=== PATIENT | female | born 1980 | race Caucasian/White ===

== ENCOUNTER 2018-05-03 11:55 | Day surgery (SDC) | payer MEDICAID ==
[2018-05-03] VITALS (7 sets, daily range): BP systolic 117–131; BP diastolic 62–87
[~2018-05-03] VITALS: Ht 160 cm; Wt 88.4 kg
[~2018-05-03 11:55] MED LIST: CHOL2000 PO; CYCL5TAB PO; LISI-604 PO; cefotetan 2gm/isosm dext IVPB 50 ML IV ONE; famotidine 20mg tablet PO ONE; ringers solution, lacted 1,000 ML IV SCH
[2018-05-03 13:03] LABS: BASOPHILS # (AUTO) 0.1 X10'3 (0-0.2); BASOPHILS % (AUTO) 0.8 % (0-1); EOSINOPHILS # (AUTO) 0.4 X10'3 (0-0.9); EOSINOPHILS % (AUTO) 3.6 % (0-6); HEMATOCRIT 43.4 % (35.0-45.0); HEMOGLOBIN 14.4 g/dl (12.0-16.0); LYMPHOCYTES # (AUTO) 2.9 X10'3 (1.1-4.8); LYMPHOCYTES % (AUTO) 27.3 % (21-51); MEAN CORPUSCULAR HEMOGLOBIN 27.9 PG (27.0-31.0); MEAN CORPUSCULAR HGB CONC 33.2 g/dL (33.0-36.5); MEAN CORPUSCULAR VOLUME 84.1 FL (78-98); MEAN PLATELET VOLUME 7.5 FL (7.4-10.4); MONOCYTES # (AUTO) 0.5 X10'3 (0-0.9); MONOCYTES % (AUTO) 4.9 % (2-12); NEUTROPHILS # (AUTO) 6.7 X10'3 (1.8-7.7); NEUTROPHILS % (AUTO) 63.4 % (42-75); PLATELET COUNT 272 X10'3 (140-440); RED BLOOD COUNT 5.16 X10'6 (4.20-5.60); RED CELL DISTRIBUTION WIDTH 14.1 % (11.5-14.5); WHITE BLOOD COUNT 10.5 X10'3 (4.5-11.0)
[2018-05-03] MEDS ORDERED: ringers solution, lacted 1,000 ML IV SCH (13:17)
[2018-05-03 13:18] LABS: ALANINE AMINOTRANSFERASE 21 U/L (12-78); ALKALINE PHOSPHATASE 74 IU/L (46-116); ANION GAP 14 (8-16); ASPARTATE AMINO TRANSFERASE 14 U/L (10-37); BILIRUBIN,TOTAL 0.3 MG/DL (0.1-1.0); BLOOD UREA NITROGEN 10 MG/DL (7-18); BUN/CREATININE RATIO 14.9 (6.6-38.0); CALCIUM 9.4 MG/DL (8.5-10.1); CHLORIDE 103 MMOL/L (99-107); CREATININE 0.67 MG/DL (0.40-0.90); GLUCOSE 97 MG/DL (70-104); POTASSIUM 3.8 MMOL/L (3.5-5.1); SODIUM 140 MMOL/L (135-145); TOTAL CARBON DIOXIDE 23.1 MMOL/L (24-32); TOTAL PROTEIN 8.2 G/DL (6.4-8.2); eGFR > 90 ML/MIN
[2018-05-03] MEDS ORDERED: ondansetron/PF 4mg/2ml inj IV PRN (13:20)
[2018-05-03] MEDS ORDERED: meperidine/PF 25mg/ml syringe IV PRN ×3 (13:20)
[2018-05-03] MEDS ORDERED: morphine 4 MG/ML inj SYRINge IV PRN ×2 (13:20)
[2018-05-03] MEDS ORDERED: proCHLORperazine 10 MG/2 ml inj IV PRN (13:20)
[2018-05-03 13:38] LABS: HCG SERUM QL NEGATIVE
[2018-05-03] MEDS ORDERED: epiNEPHrine 1 mg/ml inj ONE (14:02)
[2018-05-03] MEDS ORDERED: BUPIVAcaine/PF 2.5mg/ml (0.25%) 10ml vial ONE (14:02)
[2018-05-03] MEDS ORDERED: neostigmine methylsulfate 1 MG/ML 10ml vial ONE (14:12)
[2018-05-03] MEDS ORDERED: sevoflurane 250ml liquid IH ONE (14:12)
[2018-05-03] MEDS ORDERED: fentaNYL/PF 50MCG/1 ML 2ML syringe ONE (14:18)
[2018-05-03] MEDS ORDERED: propofol inj 20 ML IV ONE (14:19)
[2018-05-03] MEDS ORDERED: midazolam 2 mg/2 ml injection ONE (14:19)
[2018-05-03] MEDS ORDERED: LIDOcaine 2% (20mg/ml) 5ml vial ONE (14:19)
[2018-05-03] MEDS ORDERED: dexamethasone sod phosphate 4mg/ml inj. ONE (14:26)
[2018-05-03] MEDS ORDERED: rocuronium 10mg/ml inj IV ONE (14:28)
[2018-05-03] MEDS ORDERED: glycopyrrolate 0.2mg/ml inj ONE (14:51)
[2018-05-03] MEDS ORDERED: ketorolac trometh. 30mg/ml inj. ONE (14:51)
--- NOTE | 2018-05-03 15:00 | NUR ---
Received from OR via EDIN, accompanied by Anesthesiologist KATLYN and report given by Anesthesiolgist. PATIENT WITH 20G PIV IN LEFT HAND RUNNING LR AT 100. DENIES PAIN. 2 LAP SITES TO ABDOMEN. VSS. Addendum: 05/03/18 at 1523 by Valeriano López RN, RN Amended: Links added.
--- NOTE | 2018-05-03 15:50 | NUR ---
ALL DC CRITERIA HAS BEEN MET. IV TAKEN OUT WITHOUT COMPLICATIONS. ALL INSTRUCTIONS COVERED AND ALL QUESTIONS ANSWERED. DRESSINGS CDI. OUT VIA WHEELCHAIR TO PERSONAL VEHICLE WHERE PATIENT WAS SECURED IN AND DRIVEN HOME BY FAMILY. MOTHER DROVE PATIENT HOME. VSS. PAIN WELL CONTROLLED. Addendum: 05/03/18 at 1553 by Valeriano López RN, RN Amended: Links added.
== END 2018-05-03 15:50 | disposition home or self-care (01) ==
LOC: PAS 11:55
PROVIDERS: ATTEND Obstetrics & Gynecology Obstetrics
DX: Z30.2 Encounter for sterilization (principal); I10 Essential (primary) hypertension; Z79.899 Other long term (current) drug therapy; Z83.3 Family history of diabetes mellitus; Z82.49 Family history of ischemic heart disease and other diseases of the circulatory system
CPT/HCPCS: 36415; 58671; 71045; 80053; 84703; 85025; 86885; 86900; 86901; 93005; A4264; J0171; J1100; J1885; J2001; J2175; J2250; J2704; J2710; J3010; J3490; A7000; J7120

== ENCOUNTER 2019-04-27 19:10 | Emergency (ER) | payer MEDICAID ==
[~2019-04-27] VITALS: Ht 160 cm; Wt 78.5 kg
[~2019-04-27 19:10] MED LIST changes: -cefotetan 2gm/isosm dext IVPB 50 ML IV ONE; -famotidine 20mg tablet PO ONE; -ringers solution, lacted 1,000 ML IV SCH
[2019-04-27 19:13] VITALS: BP 147/96
== END 2019-04-27 20:55 | disposition left against medical advice (07) ==
LOC: ER 19:10
DX: M54.2 Cervicalgia (principal); Z53.21 Procedure and treatment not carried out due to patient leaving prior to being seen by health care provider

== ENCOUNTER 2019-04-28 13:55 | Emergency (ER) | payer MEDICAID ==
[~2019-04-28] VITALS: Ht 160 cm; Wt 78.3 kg
[2019-04-28 14:07] VITALS: BP 149/104
[2019-04-28] MEDS ORDERED: ketorolac trometh. 30mg/ml inj. IM ONE (14:30)
== END 2019-04-28 15:00 | disposition home or self-care (01) ==
LOC: ER 13:55
DX: M54.2 Cervicalgia (principal); I10 Essential (primary) hypertension; G89.29 Other chronic pain; F17.210 Nicotine dependence, cigarettes, uncomplicated; Z72.89 Other problems related to lifestyle; Z79.899 Other long term (current) drug therapy
CPT/HCPCS: 96372; 99283; J1885

== ENCOUNTER 2019-11-30 16:04 | Emergency (ER) | payer MEDICAID ==
[~2019-11-30] VITALS: Ht 162.6 cm; Wt 79.0 kg
[2019-11-30] MEDS ORDERED: ketorolac tromethamine 15mg/ml inj. IM ONE (17:45)
[2019-11-30] MEDS ORDERED: orphenadrine citrate 60mg/2ml inj. IM ONE (17:45)
[2019-11-30 18:48] VITALS: BP 148/102
[2019-11-30] MEDS ORDERED: TIZA2TAB7 PO (19:02)
== END 2019-11-30 19:24 | disposition home or self-care (01) ==
LOC: ER 16:05
DX: M54.5 Low back pain (principal); I10 Essential (primary) hypertension; G89.29 Other chronic pain; Z72.89 Other problems related to lifestyle; Z79.899 Other long term (current) drug therapy
CPT/HCPCS: 72070; 72100; 96372; 99284; J1885; J2360

== ENCOUNTER 2020-06-22 18:49 | Emergency (ER) | payer MEDICAID ==
[~2020-06-22] VITALS: Ht 162.6 cm; Wt 77.0 kg
[~2020-06-22 18:49] MED LIST changes: -LISI-604 PO; +LISI-790 PO; +TIZA-189 PO
[2020-06-22] MEDS ORDERED: normal saline 1000ML IV soln IVB ONE (19:40)
[2020-06-22] MEDS ORDERED: fentaNYL/PF 50MCG/1 ML 2ML syringe IV ONE (20:00)
[2020-06-22 20:45] LABS: BASOPHILS # (AUTO) 0.1 X10'3 (0-0.2); EOSINOPHILS # (AUTO) 0.1 X10'3 (0-0.9); EOSINOPHILS % (AUTO) 0.9 % (0-6); HEMATOCRIT 45.2 % (35.0-45.0); HEMOGLOBIN 15.3 g/dl (12.0-16.0); LYMPHOCYTES # (AUTO) 3.2 X10'3 (1.1-4.8); MEAN CORPUSCULAR HEMOGLOBIN 35.2 PG (27.0-31.0); MEAN CORPUSCULAR HGB CONC 33.9 g/dL (33.0-36.5); MEAN CORPUSCULAR VOLUME 103.8 FL (78-98); MEAN PLATELET VOLUME 6.7 FL (7.4-10.4); MONOCYTES # (AUTO) 0.6 X10'3 (0-0.9); MONOCYTES % (AUTO) 5.6 % (2-12); NEUTROPHILS % (AUTO) 63.5 % (42-75); PLATELET COUNT 308 X10'3 (140-440); RED BLOOD COUNT 4.35 X10'6 (4.20-5.60); RED CELL DISTRIBUTION WIDTH 14.3 % (11.5-14.5)
[2020-06-22 20:58] LABS: CLARITY,URINE SLIGHTLY CLOUDY (Clear); COLOR,URINE YELLOW (Yellow); GLUCOSE, URINE NEGATIVE (Neg); KETONES,URINE NEGATIVE (Neg); LEUKOCYTE ESTERASE ,URINE SMALL (Neg); NITRITES, URINE NEGATIVE (Neg); OCCULT BLOOD,URINE NEGATIVE (Neg); PH,URINE 5.5 (4.8-8.0); PROTEIN,URINE TRACE mg/dl (Neg)
[2020-06-22 20:59] LABS: URINE HCG NEGATIVE (NEG)
[2020-06-22 21:02] LABS: UA COLLECTION TYPE CLN CATCH MIDSTREAM
[2020-06-22 21:03] LABS: BACTERIA,URINE 2+ /HPF (Neg); RBC,URINE NONE SEEN /HPF (0-2); SQUAMOUS EPITHELIAL CELL,UR FEW /LPF (FEW); WBC,URINE 0-4 /HPF (0-4)
[2020-06-22 21:09] LABS: ALANINE AMINOTRANSFERASE 41 U/L (12-78); ALBUMIN 3.2 G/DL (3.4-5.0); ALBUMIN/GLOBULIN RATIO 0.7 (1.1-1.5); ALKALINE PHOSPHATASE 153 IU/L (46-116); ANION GAP 10 (8-16); ASPARTATE AMINO TRANSFERASE 107 U/L (10-37); BILIRUBIN,TOTAL 0.5 MG/DL (0.1-1.0); BLOOD UREA NITROGEN 4 MG/DL (7-18); BUN/CREATININE RATIO 2.7 (6.6-38.0); CALCIUM 9.2 MG/DL (8.5-10.1); CHLORIDE 95 MMOL/L (99-107); CREATININE 1.49 MG/DL (0.40-0.90); ETHANOL 0.242 GM/DL (0.0-0.010); GLUCOSE 134 MG/DL (70-104); SODIUM 139 MMOL/L (135-145); TOTAL CARBON DIOXIDE 34.2 MMOL/L (24-32); eGFR 39 ML/MIN
[2020-06-22 21:12] LABS: URINE AMPHETAMINE SCREEN NEGATIVE (Neg); URINE BARBITUATE SCREEN NEGATIVE (Neg); URINE BENZODIAZEPINES SCREEN NEGATIVE (Neg); URINE CANNABINOID SCREEN POSITIVE (Neg); URINE COCAINE SCREEN NEGATIVE (Neg); URINE METHADONE SCREEN NEGATIVE (Neg); URINE OPIATE SCREEN NEGATIVE (Neg); URINE PHENCYCLIDINE SCREEN NEGATIVE (Neg)
[2020-06-22 21:15] LABS: POTASSIUM 2.1 MMOL/L (3.5-5.1)
[2020-06-22] MEDS ORDERED: potassium Cl 10 mEq/100mL bag IV ONE (21:20)
[2020-06-22] MEDS ORDERED: POTASSIUM BICARB 20meq eff tab 20 MEQ TABLET.EFF PO ONE (21:20)
[2020-06-22 23:27] VITALS: BP 99/73
== END 2020-06-22 23:33 | disposition home or self-care (01) ==
LOC: ER 18:50
DX: G89.29 Other chronic pain (principal); E87.6 Hypokalemia; F10.129 Alcohol abuse with intoxication, unspecified; R10.32 Left lower quadrant pain; M54.2 Cervicalgia; R11.2 Nausea with vomiting, unspecified; M54.89 Other dorsalgia; I10 Essential (primary) hypertension; Z72.89 Other problems related to lifestyle; Z79.899 Other long term (current) drug therapy; Y90.0 Blood alcohol level of less than 20 mg/100 ml
CPT/HCPCS: 36415; 71045; 80053; 80305; 80320; 81001; 81025; 84145; 85025; 87077; 87088; 87186; 96361; 96365; 99285; J3480; J7030

== ENCOUNTER 2020-07-12 04:31 | Emergency (ER) | payer MEDICAID ==
[~2020-07-12] VITALS: Ht 170.2 cm; Wt 77.2 kg
[2020-07-12 04:33] VITALS: BP 148/98
== END 2020-07-12 06:27 | disposition left against medical advice (07) ==
LOC: ER 04:31
DX: R60.0 Localized edema (principal); R11.10 Vomiting, unspecified; F10.129 Alcohol abuse with intoxication, unspecified; I10 Essential (primary) hypertension; G89.29 Other chronic pain; Z72.89 Other problems related to lifestyle; Z79.899 Other long term (current) drug therapy; Y90.9 Presence of alcohol in blood, level not specified
CPT/HCPCS: 99283

== ENCOUNTER 2020-07-26 01:42 | Emergency (ER) | payer MEDICAID ==
[~2020-07-26] VITALS: Ht 162.6 cm; Wt 75.0 kg
[2020-07-26] MEDS ORDERED: LORazepam 2 mg/ml vial IV ONE (06:05)
[2020-07-26] MEDS ORDERED: normal saline 1000ml 1,000 ML IV ONE (06:05)
[2020-07-26 07:09] LABS: BASOPHILS % (AUTO) 0.5 % (0-1); EOSINOPHILS % (AUTO) 0.1 % (0-6); HEMATOCRIT 36.4 % (35.0-45.0); HEMOGLOBIN 12.5 g/dl (12.0-16.0); LYMPHOCYTES # (AUTO) 1.4 X10'3 (1.1-4.8); LYMPHOCYTES % (AUTO) 21.1 % (21-51); MEAN CORPUSCULAR HEMOGLOBIN 36.2 PG (27.0-31.0); MEAN CORPUSCULAR HGB CONC 34.2 g/dL (33.0-36.5); MEAN CORPUSCULAR VOLUME 105.7 FL (78-98); MEAN PLATELET VOLUME 7.4 FL (7.4-10.4); MONOCYTES # (AUTO) 0.3 X10'3 (0-0.9); MONOCYTES % (AUTO) 5.3 % (2-12); NEUTROPHILS # (AUTO) 4.7 X10'3 (1.8-7.7); PLATELET COUNT 75 X10'3 (140-440); RED BLOOD COUNT 3.44 X10'6 (4.20-5.60); WHITE BLOOD COUNT 6.5 X10'3 (4.5-11.0)
[2020-07-26 07:24] LABS: ALANINE AMINOTRANSFERASE 74 U/L (12-78); ALBUMIN 3.4 G/DL (3.4-5.0); ALBUMIN/GLOBULIN RATIO 0.9 (1.1-1.5); ALKALINE PHOSPHATASE 118 IU/L (46-116); ANION GAP 18 (8-16); ASPARTATE AMINO TRANSFERASE 187 U/L (10-37); BILIRUBIN,TOTAL 2.3 MG/DL (0.1-1.0); BLOOD UREA NITROGEN 11 MG/DL (7-18); BUN/CREATININE RATIO 19.3 (6.6-38.0); CALCIUM 8.5 MG/DL (8.5-10.1); CHLORIDE 100 MMOL/L (99-107); CREATININE 0.57 MG/DL (0.40-0.90); GLUCOSE 97 MG/DL (70-104); LIPASE 362 U/L (73-393); POTASSIUM 3.3 MMOL/L (3.5-5.1); SODIUM 140 MMOL/L (135-145); TOTAL PROTEIN 7.2 G/DL (6.4-8.2); eGFR > 90 ML/MIN
[2020-07-26] MEDS ORDERED: FAMO40TA73 PO (07:46)
[2020-07-26 08:03] VITALS: BP 142/85
== END 2020-07-26 08:04 | disposition home or self-care (01) ==
LOC: ER 01:42
DX: R11.2 Nausea with vomiting, unspecified (principal); K29.70 Gastritis, unspecified, without bleeding; D69.6 Thrombocytopenia, unspecified; I10 Essential (primary) hypertension; G89.29 Other chronic pain; F17.200 Nicotine dependence, unspecified, uncomplicated; Z72.89 Other problems related to lifestyle; Z79.899 Other long term (current) drug therapy; Z98.51 Tubal ligation status
CPT/HCPCS: 80053; 83690; 85025; 85610; 96374; 99283; J2060; J7030

== ENCOUNTER 2020-07-30 02:14 | Emergency (ER) | payer MEDICAID ==
[~2020-07-30] VITALS: Ht 162.6 cm; Wt 68.2 kg
[~2020-07-30 02:14] MED LIST changes: +FAMO40TA73 PO
[2020-07-30 02:20] VITALS: BP 150/96
[2020-07-30] MEDS ORDERED: PRED20TA PO (02:22)
[2020-07-30] MEDS ORDERED: dexamethasone 4mg tablet PO ONE (02:25)
== END 2020-07-30 02:44 | disposition home or self-care (01) ==
LOC: ER 02:15
DX: L25.3 Unspecified contact dermatitis due to other chemical products (principal); I10 Essential (primary) hypertension; G89.29 Other chronic pain; Z98.51 Tubal ligation status; Z72.89 Other problems related to lifestyle; Z60.2 Problems related to living alone; Z79.899 Other long term (current) drug therapy
CPT/HCPCS: 99283

== ENCOUNTER → 2020-08-03 | Emergency (ER) | payer MEDICAID ==
[~2020-08-03] VITALS: Ht 162.6 cm; Wt 69.0 kg
[~2020-08-03] MED LIST changes: +PRED20TA PO; +diphenhydrAMINE 25mg capsule PO ONE
[2020-08-03 03:47] VITALS: BP 123/79
== END | disposition home or self-care (01) ==
LOC: ER 03:46
DX: L53.8 Other specified erythematous conditions (principal); L29.9 Pruritus, unspecified; R94.5 Abnormal results of liver function studies; I10 Essential (primary) hypertension; F17.200 Nicotine dependence, unspecified, uncomplicated; G89.29 Other chronic pain; Z98.51 Tubal ligation status; Z72.89 Other problems related to lifestyle; Z60.2 Problems related to living alone; Z79.899 Other long term (current) drug therapy
CPT/HCPCS: 99282; Q0163

== ENCOUNTER → 2020-12-30 | Emergency (ER) | payer MEDICAID ==
[~2020-12-30] VITALS: Ht 162.6 cm; Wt 56.4 kg
[~2020-12-30] MED LIST changes: -LISI-790 PO; +LISI5TAB22 PO; -PRED20TA PO; -diphenhydrAMINE 25mg capsule PO ONE
[2020-12-30 11:30] VITALS: BP 157/108
[2020-12-30 12:08] LABS: ALANINE AMINOTRANSFERASE 26 U/L (12-78); ALBUMIN 4.2 G/DL (3.4-5.0); ALKALINE PHOSPHATASE 90 IU/L (46-116); ANION GAP 17 (8-16); ASPARTATE AMINO TRANSFERASE 25 U/L (10-37); BILIRUBIN,TOTAL 0.5 MG/DL (0.1-1.0); BLOOD UREA NITROGEN 10 MG/DL (7-18); BUN/CREATININE RATIO 16.9 (6.6-38.0); CHLORIDE 107 MMOL/L (99-107); CREATININE 0.59 MG/DL (0.40-0.90); ETHANOL 0.297 GM/DL (0.0-0.010); GLUCOSE 104 MG/DL (70-104); SODIUM 151 MMOL/L (135-145); TOTAL CARBON DIOXIDE 27.3 MMOL/L (24-32); TOTAL PROTEIN 8.6 G/DL (6.4-8.2); eGFR > 90 ML/MIN
[2020-12-30 12:12] LABS: POTASSIUM 2.8 MMOL/L (3.5-5.1)
[2020-12-30 12:18] LABS: BASOPHILS # (AUTO) 0.1 X10'3 (0-0.2); BASOPHILS % (AUTO) 1.3 % (0-1); EOSINOPHILS # (AUTO) 0.1 X10'3 (0-0.9); EOSINOPHILS % (AUTO) 1.1 % (0-6); HEMATOCRIT 44.4 % (35.0-45.0); HEMOGLOBIN 14.6 g/dl (12.0-16.0); LYMPHOCYTES # (AUTO) 2.6 X10'3 (1.1-4.8); LYMPHOCYTES % (AUTO) 36.6 % (21-51); MEAN CORPUSCULAR HEMOGLOBIN 26.6 PG (27.0-31.0); MEAN CORPUSCULAR HGB CONC 32.9 g/dL (33.0-36.5); MEAN CORPUSCULAR VOLUME 80.7 FL (78-98); MEAN PLATELET VOLUME 7.1 FL (7.4-10.4); MONOCYTES # (AUTO) 0.3 X10'3 (0-0.9); MONOCYTES % (AUTO) 4.5 % (2-12); NEUTROPHILS # (AUTO) 4.1 X10'3 (1.8-7.7); NEUTROPHILS % (AUTO) 56.5 % (42-75); PLATELET COUNT 306 X10'3 (140-440); RED BLOOD COUNT 5.49 X10'6 (4.20-5.60); RED CELL DISTRIBUTION WIDTH 14.6 % (11.5-14.5); WHITE BLOOD COUNT 7.2 X10'3 (4.5-11.0)
== END | disposition home or self-care (01) ==
LOC: ER 10:37
DX: F10.929 Alcohol use, unspecified with intoxication, unspecified (principal); E87.6 Hypokalemia; I10 Essential (primary) hypertension; Z88.8 Allergy status to other drugs, medicaments and biological substances
CPT/HCPCS: 36415; 80053; 80320; 82140; 85025; 99283

== ENCOUNTER 2021-01-12 16:32 | Emergency (ER) | payer MEDICAID ==
[~2021-01-12] VITALS: Ht 162.6 cm; Wt 60.0 kg
[2021-01-12 17:17] LABS: BASOPHILS % (AUTO) 0.4 % (0-1); EOSINOPHILS # (AUTO) 0.1 X10'3 (0-0.9); HEMATOCRIT 37.6 % (35.0-45.0); HEMOGLOBIN 12.4 g/dl (12.0-16.0); LYMPHOCYTES # (AUTO) 2.1 X10'3 (1.1-4.8); MEAN CORPUSCULAR HEMOGLOBIN 26.7 PG (27.0-31.0); MEAN CORPUSCULAR HGB CONC 32.9 g/dL (33.0-36.5); MEAN CORPUSCULAR VOLUME 81.3 FL (78-98); MONOCYTES # (AUTO) 0.4 X10'3 (0-0.9); MONOCYTES % (AUTO) 6.5 % (2-12); NEUTROPHILS # (AUTO) 3.8 X10'3 (1.8-7.7); NEUTROPHILS % (AUTO) 59.1 % (42-75); PLATELET COUNT 96 X10'3 (140-440); RED BLOOD COUNT 4.63 X10'6 (4.20-5.60); WHITE BLOOD COUNT 6.4 X10'3 (4.5-11.0)
[2021-01-12 17:31] LABS: ALANINE AMINOTRANSFERASE 88 U/L (12-78); ALBUMIN 3.5 G/DL (3.4-5.0); ALBUMIN/GLOBULIN RATIO 0.9 (1.1-1.5); ALKALINE PHOSPHATASE 99 IU/L (46-116); ANION GAP 14 (8-16); ASPARTATE AMINO TRANSFERASE 98 U/L (10-37); BILIRUBIN,TOTAL 0.9 MG/DL (0.1-1.0); BLOOD UREA NITROGEN 6 MG/DL (7-18); BUN/CREATININE RATIO 11.3 (6.6-38.0); CALCIUM 8.5 MG/DL (8.5-10.1); CHLORIDE 106 MMOL/L (99-107); CREATININE 0.53 MG/DL (0.40-0.90); ETHANOL 0.234 GM/DL (0.0-0.010); GLUCOSE 103 MG/DL (70-104); MAGNESIUM 2.2 MG/DL (1.5-2.4); POTASSIUM 3.7 MMOL/L (3.5-5.1); SODIUM 144 MMOL/L (135-145); TOTAL CARBON DIOXIDE 24.1 MMOL/L (24-32); TOTAL PROTEIN 7.3 G/DL (6.4-8.2); eGFR > 90 ML/MIN
[2021-01-12] MEDS ORDERED: THIA100T66 PO (17:46)
[2021-01-12] MEDS ORDERED: FAMO40TA58 PO (17:46)
[2021-01-12] MEDS ORDERED: FOLI0.8T3 PO (17:46)
[2021-01-12] MEDS ORDERED: POTA10TA PO (17:46)
[2021-01-12] MEDS ORDERED: GABA300C PO (17:46)
--- NOTE | 2021-01-12 17:58 | NUR ---
Pt given and understands d/c instructions. Pt refuses to sign the discharge paper. Given a bus pass. Security called to escort pt out of the ER.
[2021-01-12 17:59] VITALS: BP 128/66
== END 2021-01-12 18:01 | disposition home or self-care (01) ==
LOC: ER 16:33
DX: F10.129 Alcohol abuse with intoxication, unspecified (principal); R53.1 Weakness; I10 Essential (primary) hypertension; G89.29 Other chronic pain; Z98.51 Tubal ligation status; Z72.89 Other problems related to lifestyle; Z60.2 Problems related to living alone; Z88.8 Allergy status to other drugs, medicaments and biological substances; Z79.899 Other long term (current) drug therapy; Y90.0 Blood alcohol level of less than 20 mg/100 ml
CPT/HCPCS: 36415; 80053; 80320; 82140; 83735; 85025; 99283

== ENCOUNTER 2021-01-12 19:12 | Emergency (ER) | payer MEDICAID ==
[~2021-01-12] VITALS: Ht 162.6 cm; Wt 54.5 kg
[~2021-01-12 19:12] MED LIST changes: +FAMO40TA58 PO; +FOLI0.8T3 PO; +GABA300C PO; +POTA10TA PO; +THIA100T66 PO
[2021-01-12 19:23] VITALS: BP 137/93
== END 2021-01-12 19:30 | disposition home or self-care (01) ==
LOC: ER 19:12
DX: F10.129 Alcohol abuse with intoxication, unspecified (principal); R53.1 Weakness; I10 Essential (primary) hypertension; G89.29 Other chronic pain; Z98.51 Tubal ligation status; Z72.89 Other problems related to lifestyle; Z60.2 Problems related to living alone; Z88.8 Allergy status to other drugs, medicaments and biological substances; Z79.899 Other long term (current) drug therapy; Y90.9 Presence of alcohol in blood, level not specified
CPT/HCPCS: 99283

== ENCOUNTER 2021-09-14 02:51 | Emergency (ER) | payer MEDICAID ==
[~2021-09-14] VITALS: Ht 160 cm; Wt 68.0 kg
[~2021-09-14 02:51] MED LIST changes: -CHOL2000 PO; -CYCL5TAB PO; -FAMO40TA73 PO; -LISI5TAB22 PO; -TIZA-189 PO
[2021-09-14] MEDS ORDERED: DICL100G30 TOP (02:55)
[2021-09-14] MEDS ORDERED: BACL20TA PO (02:55)
[2021-09-14] MEDS ORDERED: NAPR-996 PO (02:55)
--- NOTE | 2021-09-14 03:15 | NUR ---
Pt BIB law enforcement after they received multiple calls requested that they give her medication. Per law enforcement pt had a tray of medicine that she has not been taking and she was worried that someone would take them. Law enforcement reported that there was 2 empty bottles of [place] in the hotel room and that the pt was having auditory and visual hallucinations about a [employer]. Pt admits to drinking 8 shots of whiskey and that [place] is her landlord. Pt has not mentioned [employer] since arrival. Pt was cooperative and calm while taking vital signs and insertion of IV.
[2021-09-14 03:39] LABS: EOSINOPHILS % (AUTO) 0.5 % (0-6); MONOCYTES # (AUTO) 0.4 X10'3 (0-0.9)
[2021-09-14 03:40] LABS: BASOPHILS # (AUTO) 0.1 X10'3 (0-0.2); BASOPHILS % (AUTO) 1.1 % (0-1); HEMATOCRIT 47.6 % (35.0-45.0); LYMPHOCYTES # (AUTO) 3.2 X10'3 (1.1-4.8); LYMPHOCYTES % (AUTO) 38.7 % (21-51); MEAN CORPUSCULAR HEMOGLOBIN 28.8 PG (27.0-31.0); MEAN CORPUSCULAR HGB CONC 33.7 g/dL (33.0-36.5); MEAN CORPUSCULAR VOLUME 85.4 FL (78-98); MEAN PLATELET VOLUME 7.4 FL (7.4-10.4); MONOCYTES % (AUTO) 5.3 % (2-12); NEUTROPHILS # (AUTO) 4.5 X10'3 (1.8-7.7); NEUTROPHILS % (AUTO) 54.4 % (42-75); PLATELET COUNT 222 X10'3 (140-440); RED BLOOD COUNT 5.57 X10'6 (4.20-5.60); RED CELL DISTRIBUTION WIDTH 13.9 % (11.5-14.5); WHITE BLOOD COUNT 8.4 X10'3 (4.5-11.0)
[2021-09-14 03:51] LABS: ALANINE AMINOTRANSFERASE 32 U/L (12-78); ALBUMIN 4.2 G/DL (3.4-5.0); ALKALINE PHOSPHATASE 93 IU/L (46-116); ANION GAP 21 (8-16); ASPARTATE AMINO TRANSFERASE 25 U/L (10-37); BILIRUBIN,TOTAL 0.5 MG/DL (0.1-1.0); BLOOD UREA NITROGEN 15 MG/DL (7-18); BUN/CREATININE RATIO 22.7 (6.6-38.0); CALCIUM 8.2 MG/DL (8.5-10.1); CHLORIDE 104 MMOL/L (99-107); CREATININE 0.66 MG/DL (0.40-0.90); GLUCOSE 157 MG/DL (70-104); SODIUM 146 MMOL/L (135-145); TOTAL CARBON DIOXIDE 20.9 MMOL/L (24-32); TOTAL PROTEIN 8.6 G/DL (6.4-8.2); eGFR > 90 ML/MIN
[2021-09-14 04:02] LABS: ETHANOL 0.344 GM/DL (0.0-0.010)
[2021-09-14 04:04] LABS: ACETAMINOPHEN < 2.0 UG/ML (10-30)
[2021-09-14] MEDS ORDERED: nicotine 14mg patch - 24hr TD ONE (04:15)
[2021-09-14 04:18] LABS: URINE HCG NEGATIVE (NEG)
[2021-09-14 04:31] LABS: URINE AMPHETAMINE SCREEN NEGATIVE (Neg); URINE BARBITUATE SCREEN NEGATIVE (Neg); URINE BENZODIAZEPINES SCREEN NEGATIVE (Neg); URINE CANNABINOID SCREEN NEGATIVE (Neg); URINE COCAINE SCREEN NEGATIVE (Neg); URINE METHADONE SCREEN NEGATIVE (Neg); URINE OPIATE SCREEN NEGATIVE (Neg); URINE PHENCYCLIDINE SCREEN NEGATIVE (Neg)
[2021-09-14 04:32] LABS: CLARITY,URINE SLIGHTLY CLOUDY (Clear); COLOR,URINE YELLOW (Yellow); GLUCOSE, URINE NEGATIVE (Neg); KETONES,URINE TRACE mg/dl (Neg); LEUKOCYTE ESTERASE ,URINE NEGATIVE (Neg); NITRITES, URINE NEGATIVE (Neg); OCCULT BLOOD,URINE TRACE-INTACT (Neg); PH,URINE 5.5 (4.8-8.0); PROTEIN,URINE 30 mg/dl (Neg); UROBILINOGEN,URINE 0.2 E.U/dL (0.2-1.0)
[2021-09-14 04:38] LABS: BACTERIA,URINE 2+ /HPF (Neg); RBC,URINE 0-2 /HPF (0-2); SQUAMOUS EPITHELIAL CELL,UR MANY /LPF (FEW); UA COLLECTION TYPE CLN CATCH MIDSTREAM; WBC,URINE NONE SEEN /HPF (0-4)
--- NOTE | 2021-09-14 05:27 | NUR ---
Pt has been cooperative and calm since law enforcement uncuffed and left the pts bedside. Pt requested a nicotine patch and laid down and went to sleep after patch was placed on pt.
--- NOTE | 2021-09-14 07:00 | NUR ---
Packet faxed to [facility]
[2021-09-14] MEDS ORDERED: ondansetron/PF 4mg/2ml inj IV ONE ×2 (09:20→12:10)
[2021-09-14] MEDS ORDERED: famotidine 20mg tablet PO ONE (09:20)
[2021-09-14] MEDS ORDERED: potassium Cl 20 mEq SR tablet PO STA (12:37)
[2021-09-14] MEDS ORDERED: gabapentin 300mg capsule PO ONE (16:10)
--- NOTE | 2021-09-14 16:21 | NUR ---
Patient was evaluated by [facility] at which she will be able to be safety planned, but not till tomorrow when she can be seen for an appointment to help with substance abuse rehab. [facility] social sciences lecturer will come tomorrow and pick her up at 0930, but just prior to this patient will be released from the 5150. Patient will maintain 5150 hold until tomorrow morning.
[2021-09-14] MEDS ORDERED: POTASSIUM BICARB 20meq eff tab 20 MEQ TABLET.EFF PO STA (16:27)
[2021-09-14] MEDS ORDERED: ondansetron 4mg rapidly disintigrating tab PO ONE (18:55)
--- NOTE | 2021-09-14 19:00 | NUR ---
PT brought to ER overflow, pt went to the restroom without issue.
--- NOTE | 2021-09-14 19:10 | NUR ---
Pt reports feeling nauseated, physician consulted, 4mg zofran ODT given with good effect. pt was able to eat an hour after dose
--- NOTE | 2021-09-14 20:00 | NUR ---
PT took HS medications without issue
[2021-09-14] MEDS: gabapentin 300mg capsule PO SCH (21:35)
[2021-09-14] MEDS: naproxen 500mg tablet PO SCH (21:36)
--- NOTE | 2021-09-15 02:00 | NUR ---
PT asleep on R side, RR16
--- NOTE | 2021-09-15 04:41 | NUR ---
PT is asleep on back RR 14
[2021-09-15 05:47] VITALS: BP 147/93
--- NOTE | 2021-09-15 07:00 | NUR ---
UP TO USE RESTROOM WITH HER WALKER ,STEADY GAIT ,WILL CONT TO MONITOR.
[2021-09-15] MEDS ORDERED: thiamine 100mg tablet PO SCH (08:00)
[2021-09-15] MEDS: naproxen 500mg tablet PO SCH (08:00)
[2021-09-15] MEDS ORDERED: famotidine 20mg tablet PO SCH (08:00)
[2021-09-15] MEDS ORDERED: folic acid 1mg tablet PO SCH (08:00)
[2021-09-15] MEDS: gabapentin 300mg capsule PO SCH (08:12)
--- NOTE | 2021-09-15 08:26 | NUR ---
MEDS GIVEN TO THE PT ,REFUSED TO TAKE NAPROXEN TAB, PER PT IT MAKE HER STOMACH SICK .DID THE GENERAL HEAD TO TOE ASSESMENT .
== END 2021-09-15 09:35 | disposition home or self-care (01) ==
LOC: ER 02:51
DX: F29 Unspecified psychosis not due to a substance or known physiological condition (principal); F10.920 Alcohol use, unspecified with intoxication, uncomplicated; R44.1 Visual hallucinations; R44.0 Auditory hallucinations; I10 Essential (primary) hypertension; G89.29 Other chronic pain; F17.210 Nicotine dependence, cigarettes, uncomplicated; Z79.899 Other long term (current) drug therapy; Z88.8 Allergy status to other drugs, medicaments and biological substances
CPT/HCPCS: 36415; 80053; 80305; 80320; 80329; 81001; 81025; 84443; 85025; 96374; 99285; J2405

== ENCOUNTER 2023-08-08 14:56 | Inpatient (IN) | payer MEDICAID ==
[~2023-08-08] VITALS: Ht 162.6 cm; Wt 65.9 kg
[~2023-08-08 14:56] MED LIST changes: +NAPR-996 PO; -POTA10TA PO
[2023-08-08] MEDS: HYDROmorphone 1 mg/ml syringe IV ONE ×2 (15:23→16:29)
[2023-08-08] MEDS: LORazepam 2 mg/ml vial IV ONE (16:02)
[2023-08-08] MEDS ORDERED: ondansetron/PF 4mg/2ml inj IV PRN (16:05)
[2023-08-08] MEDS ORDERED: magnesium Cl slow-release 64mg tablet PO PRN (16:05)
[2023-08-08] MEDS ORDERED: mag hydrox/Alum hydrox/simeth 30ml oral suspension PO PRN (16:05)
[2023-08-08] MEDS ORDERED: magnesium hydroxide 30ml (MOM) UD suspension PO PRN (16:05)
[2023-08-08] MEDS ORDERED: acetaminophen 325mg tablet PO PRN (16:05)
[2023-08-08] MEDS ORDERED: morphine 2 MG/ML inj. syringe IV PRN (16:05)
[2023-08-08] MEDS ORDERED: magnesium 2GM in 50ml NS 50 ML IV PRN (16:05)
[2023-08-08] MEDS ORDERED: magnesium 4gm in 100ml NS 100 ML IV PRN (16:05)
[2023-08-08 17:06] LABS: APTT 24 SECONDS (22-32); INR 1.1 INR; PROTHROMBIN TIME 11.2 SECONDS (9.0-12.0)
[2023-08-08 17:07] LABS: BASOPHILS # (AUTO) 0.1 X10'3 (0-0.2); BASOPHILS % (AUTO) 1.4 % (0-1); EOSINOPHILS # (AUTO) 0.1 X10'3 (0-0.9); EOSINOPHILS % (AUTO) 1.9 % (0-6); HEMATOCRIT 34.9 % (35.0-45.0); HEMOGLOBIN 11.3 g/dl (12.0-16.0); LYMPHOCYTES # (AUTO) 2.1 X10'3 (1.1-4.8); MEAN CORPUSCULAR HEMOGLOBIN 28.7 PG (27.0-31.0); MEAN CORPUSCULAR HGB CONC 32.3 g/dL (33.0-36.5); MEAN CORPUSCULAR VOLUME 88.8 FL (78-98); MEAN PLATELET VOLUME 7.2 FL (7.4-10.4); MONOCYTES # (AUTO) 0.4 X10'3 (0-0.9); NEUTROPHILS # (AUTO) 2.7 X10'3 (1.8-7.7); NEUTROPHILS % (AUTO) 50.7 % (42-75); PLATELET COUNT 212 X10'3 (140-440); RED BLOOD COUNT 3.93 X10'6 (4.20-5.60); RED CELL DISTRIBUTION WIDTH 20.2 % (11.5-14.5); WHITE BLOOD COUNT 5.3 X10'3 (4.5-11.0)
[2023-08-08 17:12] LABS: ALANINE AMINOTRANSFERASE 26 U/L (12-78); ALBUMIN 3.4 G/DL (3.4-5.0); ALBUMIN/GLOBULIN RATIO 0.9 (1.1-1.5); ALKALINE PHOSPHATASE 60 IU/L (46-116); ANION GAP 15 (8-16); ASPARTATE AMINO TRANSFERASE 24 U/L (10-37); BILIRUBIN,TOTAL 0.4 MG/DL (0.1-1.0); BLOOD UREA NITROGEN 5 MG/DL (7-18); BUN/CREATININE RATIO 8.9 (10.0-20.0); CHLORIDE 108 MMOL/L (99-107); CREATININE 0.56 MG/DL (0.40-0.90); GLUCOSE 92 MG/DL (70-104); MAGNESIUM 2.2 MG/DL (1.5-2.4); SODIUM 147 MMOL/L (135-145); TOTAL CARBON DIOXIDE 24.4 MMOL/L (24-32); TOTAL PROTEIN 7.2 G/DL (6.4-8.2); eCRCL 113 ML/MIN; eGFR > 90 ML/MIN
[2023-08-08 17:15] LABS: POTASSIUM 2.6 MMOL/L (3.5-5.1)
[2023-08-08 17:17] LABS: ETHANOL 382 MG/DL (<10)
[2023-08-08] MEDS: potassium Cl 20 mEq SR tablet PO STA (18:01)
[2023-08-08] MEDS: potassium CL 10mEq/100ml bag 100 ML IV SCH (18:01)
[2023-08-08 18:43] LABS: ANISOCYTOSIS 3+; PLATELET ESTIMATE NORMAL; POLYCHROMASIA FEW
[2023-08-08] MEDS: docusate sod 100mg capsule PO SCH (20:00)
[2023-08-08] MEDS: K and/or MAG REPLACEMENT MC SCH (20:00)
[2023-08-08] MEDS: potassium Cl 40MEQ/1/2NS 520ml 520 ML IV PRN (20:34)
[2023-08-08 21:10] VITALS: BP 135/85; PULSE 92; RESP 14; TEMP 98.8; O2SAT 97
[2023-08-08] MEDS ORDERED: CHOL500050 PO (21:27)
[2023-08-08] MEDS ORDERED: PREG150C47 PO (21:32)
[2023-08-08] MEDS: LORazepam 1 MG tablet PO PRN (21:39)
[2023-08-08] MEDS: HYDROcodone/acetaminophen 10/325mg tab PO PRN (21:39)
[2023-08-08] MEDS: morphine 2 MG/ML inj. syringe IV PRN (22:38)
[2023-08-08] MEDS: potassium Cl 20 mEq SR tablet PO PRN (23:08)
[2023-08-09] VITALS (24 sets, daily range): BP systolic 117–159; BP diastolic 67–100; PULSE 68–86; RESP 12–21; TEMP 97.3–98.1; O2SAT 92–100
[2023-08-09 07:46] LABS: BASOPHILS % (AUTO) 0.5 % (0-1); EOSINOPHILS # (AUTO) 0.1 X10'3 (0-0.9); EOSINOPHILS % (AUTO) 1.5 % (0-6); HEMATOCRIT 34.3 % (35.0-45.0); HEMOGLOBIN 11.2 g/dl (12.0-16.0); LYMPHOCYTES # (AUTO) 1.5 X10'3 (1.1-4.8); LYMPHOCYTES % (AUTO) 17.2 % (21-51); MEAN CORPUSCULAR HEMOGLOBIN 28.8 PG (27.0-31.0); MEAN CORPUSCULAR HGB CONC 32.6 g/dL (33.0-36.5); MEAN CORPUSCULAR VOLUME 88.3 FL (78-98); MEAN PLATELET VOLUME 7.3 FL (7.4-10.4); MONOCYTES # (AUTO) 0.4 X10'3 (0-0.9); MONOCYTES % (AUTO) 5.1 % (2-12); NEUTROPHILS # (AUTO) 6.7 X10'3 (1.8-7.7); NEUTROPHILS % (AUTO) 75.7 % (42-75); PLATELET COUNT 198 X10'3 (140-440); RED BLOOD COUNT 3.88 X10'6 (4.20-5.60); RED CELL DISTRIBUTION WIDTH 19.5 % (11.5-14.5); WHITE BLOOD COUNT 8.9 X10'3 (4.5-11.0)
[2023-08-09 07:58] LABS: PROTHROMBIN TIME 10.5 SECONDS (9.0-12.0)
[2023-08-09] MEDS: enoxaparin 40mg/0.4ml syringe SUBCUT SCH (08:00)
[2023-08-09] MEDS: multivitamins, therapeutics tablet PO SCH (08:11)
[2023-08-09 08:34] LABS: ALANINE AMINOTRANSFERASE 23 U/L (12-78); ALBUMIN 3.1 G/DL (3.4-5.0); ALBUMIN/GLOBULIN RATIO 0.9 (1.1-1.5); ALKALINE PHOSPHATASE 58 IU/L (46-116); AMYLASE 41 U/L (25-115); ANION GAP 10 (8-16); ASPARTATE AMINO TRANSFERASE 21 U/L (10-37); BILIRUBIN,TOTAL 1.2 MG/DL (0.1-1.0); BLOOD UREA NITROGEN 10 MG/DL (7-18); BUN/CREATININE RATIO 16.4 (10.0-20.0); CALCIUM 8.8 MG/DL (8.5-10.1); CHLORIDE 107 MMOL/L (99-107); CREATININE 0.61 MG/DL (0.40-0.90); GLUCOSE 116 MG/DL (70-104); LIPASE 33 U/L (16-77); MAGNESIUM 1.8 MG/DL (1.5-2.4); PHOSPHORUS 3.7 MG/DL (2.3-4.5); POTASSIUM 3.8 MMOL/L (3.5-5.1); SODIUM 141 MMOL/L (135-145); TOTAL CARBON DIOXIDE 24.2 MMOL/L (24-32); TOTAL PROTEIN 6.7 G/DL (6.4-8.2); eCRCL 104 ML/MIN; eGFR > 90 ML/MIN
[2023-08-09] MEDS ORDERED: enalaprilat dihydrate 2.5mg/2ml vial IV PRN (11:45)
[2023-08-09] MEDS ORDERED: morphine 2 MG/ML inj. syringe IV PRN (11:45)
[2023-08-09] MEDS ORDERED: proCHLORperazine 10 MG/2 ml inj IV PRN (11:45)
[2023-08-09] MEDS ORDERED: labetalol 20mg/4ml (5mg/ml) syringe IV PRN (11:45)
[2023-08-09] MEDS ORDERED: morphine 4 MG/ML inj SYRINge IV PRN (11:45)
[2023-08-09] MEDS ORDERED: ondansetron/PF 4mg/2ml inj IV PRN (11:45)
[2023-08-09] MEDS ORDERED: meperidine/PF 25mg/ml syringe IV PRN ×2 (11:45)
[2023-08-09] MEDS ORDERED: LISI20TA28 PO (12:00)
[2023-08-09] MEDS ORDERED: POTA-188 PO (12:00)
[2023-08-09] MEDS ORDERED: MULT-1085 PO (12:00)
[2023-08-09] MEDS ORDERED: sevoflurane 250ml liquid IH ONE (12:40)
[2023-08-09] MEDS ORDERED: fentaNYL /PF 50mcg/ml 5ml ampule ONE (12:47)
[2023-08-09] MEDS ORDERED: MIDAZolam 1 MG/ML 5ML VIAL ONE (12:47)
[2023-08-09] MEDS ORDERED: propofol inj 20 ML IV ONE (13:18)
[2023-08-09] MEDS ORDERED: rocuronium 10mg/ml inj IV ONE (13:18)
[2023-08-09] MEDS ORDERED: ROPIVAcaine 0.5% (5mg/ml) 30ml vial ONE (13:18)
[2023-08-09] MEDS ORDERED: ceFAZolin 1000mg inj ONE ×2 (13:44)
[2023-08-09] MEDS: ceFAZolin 1000mg inj IR ONE (13:49)
[2023-08-09] MEDS: bacitracin 15gm ointment TP ONE (15:16)
[2023-08-09] MEDS: ceFAZolin 1000mg inj ONE (15:16)
[2023-08-09] MEDS: ringers solution, lacted 1,000 ML IV SCH (15:17)
[2023-08-09] MEDS: vancomycin/NS 1 GM ADD-VANTAGE 250 ML IV ONE (15:45)
[2023-08-09] MEDS: meperidine/PF 25mg/ml syringe IV PRN (15:46)
[2023-08-09] MEDS ORDERED: acetaminophen 325mg tablet PO PRN (15:50)
[2023-08-09] MEDS ORDERED: bisacodyl 10mg suppository rectal RC PRN (15:50)
[2023-08-09] MEDS ORDERED: magnesium hydroxide 30ml (MOM) UD suspension PO PRN (15:50)
[2023-08-09] MEDS ORDERED: naloxone 0.4 mg/ml inj IV PRN (15:50)
[2023-08-09] MEDS: potassium Cl 20mEq in NS 1,000 ML IV SCH (15:50)
[2023-08-09] MEDS ORDERED: diphenhydrAMINE 25mg capsule PO PRN (15:50)
[2023-08-09] MEDS ORDERED: hydrALAZINE 20mg/ml inj. IV PRN (18:20)
[2023-08-09] MEDS: ceFAZolin/D5W- 1GM premix 50 ML IV SCH (18:41)
[2023-08-09] MEDS: vancomycin/NS 1 GM ADD-VANTAGE 250 ML IV SCH (19:53)
[2023-08-09] MEDS: acetaminophen 325mg tablet PO SCH (19:54)
[2023-08-09] MEDS: sennosides 8.6mg tablet PO SCH (20:02)
[2023-08-09] MEDS: pregabalin 75mg capsule PO SCH (20:02)
[2023-08-09] MEDS: gabapentin 300mg capsule PO SCH (20:07)
[2023-08-10] VITALS: BP 144/87; PULSE 69; RESP 16
[2023-08-10 06:00] VITALS: BP 133/81; PULSE 76; RESP 15; TEMP 97.9; O2SAT 96
[2023-08-10 06:49] LABS: BASOPHILS % (AUTO) 0.2 % (0-1); EOSINOPHILS % (AUTO) 0 % (0-6); HEMATOCRIT 30.2 % (35.0-45.0); HEMOGLOBIN 9.7 g/dl (12.0-16.0); LYMPHOCYTES # (AUTO) 0.8 X10'3 (1.1-4.8); LYMPHOCYTES % (AUTO) 6.5 % (21-51); MEAN CORPUSCULAR HEMOGLOBIN 28.3 PG (27.0-31.0); MEAN CORPUSCULAR HGB CONC 32.1 g/dL (33.0-36.5); MEAN PLATELET VOLUME 7.5 FL (7.4-10.4); MONOCYTES # (AUTO) 0.5 X10'3 (0-0.9); MONOCYTES % (AUTO) 4.6 % (2-12); NEUTROPHILS # (AUTO) 10.5 X10'3 (1.8-7.7); NEUTROPHILS % (AUTO) 88.7 % (42-75); PLATELET COUNT 157 X10'3 (140-440); RED BLOOD COUNT 3.43 X10'6 (4.20-5.60); RED CELL DISTRIBUTION WIDTH 19.3 % (11.5-14.5); WHITE BLOOD COUNT 11.8 X10'3 (4.5-11.0)
[2023-08-10 06:57] LABS: INR 1.1 INR
[2023-08-10 07:13] LABS: ALANINE AMINOTRANSFERASE 15 U/L (12-78); ALBUMIN 2.7 G/DL (3.4-5.0); ALBUMIN/GLOBULIN RATIO 0.8 (1.1-1.5); ALKALINE PHOSPHATASE 58 IU/L (46-116); AMYLASE 31 U/L (25-115); ANION GAP 10 (8-16); ASPARTATE AMINO TRANSFERASE 8 U/L (10-37); BILIRUBIN,TOTAL 0.5 MG/DL (0.1-1.0); BLOOD UREA NITROGEN 7 MG/DL (7-18); BUN/CREATININE RATIO 11.5 (10.0-20.0); CALCIUM 8.6 MG/DL (8.5-10.1); CHLORIDE 105 MMOL/L (99-107); CREATININE 0.61 MG/DL (0.40-0.90); GLUCOSE 171 MG/DL (70-104); LIPASE 27 U/L (16-77); MAGNESIUM 1.7 MG/DL (1.5-2.4); PHOSPHORUS 2.5 MG/DL (2.3-4.5); POTASSIUM 3.8 MMOL/L (3.5-5.1); SODIUM 137 MMOL/L (135-145); TOTAL CARBON DIOXIDE 22.1 MMOL/L (24-32); TOTAL PROTEIN 6.3 G/DL (6.4-8.2); eCRCL 104 ML/MIN; eGFR > 90 ML/MIN
[2023-08-10] MEDS: cholecalciferol (vitamin D3) 1,000 unit (25mcg) tablet PO SCH (07:40)
[2023-08-10] MEDS: thiamine 100mg tablet PO SCH (07:40)
[2023-08-10] MEDS: folic acid 0.4mg tablet PO SCH (07:43)
[2023-08-10] MEDS: famotidine 20mg tablet PO SCH (07:43)
[2023-08-10] MEDS: aspirin 325mg tablet PO SCH (07:49)
[2023-08-10 10:00] VITALS: BP 125/70; PULSE 77; RESP 16; TEMP 97.7; O2SAT 98
[2023-08-10 14:00] VITALS: BP 159/83; PULSE 82; RESP 20; TEMP 98.9; O2SAT 97
[2023-08-10 17:00] VITALS: BP 144/82; PULSE 75; RESP 15; TEMP 97.7; O2SAT 99
[2023-08-10] MEDS: oxyCODONE IR 5mg (immed. release) tablet PO PRN (19:56)
[2023-08-10 22:00] VITALS: BP 146/92; PULSE 84; RESP 19; TEMP 98.8; O2SAT 94
[2023-08-11] MEDS: oxyCODONE IR 5mg (immed. release) tablet PO PRN (05:03)
[2023-08-11 06:00] VITALS: BP 134/74; PULSE 71; RESP 17; TEMP 98.7; O2SAT 96
[2023-08-11 06:48] LABS: BASOPHILS % (AUTO) 0.4 % (0-1); EOSINOPHILS # (AUTO) 0.1 X10'3 (0-0.9); EOSINOPHILS % (AUTO) 1.1 % (0-6); HEMATOCRIT 26.3 % (35.0-45.0); HEMOGLOBIN 8.4 g/dl (12.0-16.0); LYMPHOCYTES # (AUTO) 2.4 X10'3 (1.1-4.8); LYMPHOCYTES % (AUTO) 27.1 % (21-51); MEAN CORPUSCULAR HEMOGLOBIN 28.1 PG (27.0-31.0); MEAN CORPUSCULAR HGB CONC 31.8 g/dL (33.0-36.5); MEAN CORPUSCULAR VOLUME 88.5 FL (78-98); MEAN PLATELET VOLUME 7.6 FL (7.4-10.4); MONOCYTES # (AUTO) 0.3 X10'3 (0-0.9); MONOCYTES % (AUTO) 3.1 % (2-12); NEUTROPHILS # (AUTO) 6.2 X10'3 (1.8-7.7); NEUTROPHILS % (AUTO) 68.3 % (42-75); PLATELET COUNT 146 X10'3 (140-440); RED BLOOD COUNT 2.97 X10'6 (4.20-5.60); RED CELL DISTRIBUTION WIDTH 19.7 % (11.5-14.5)
[2023-08-11 06:51] LABS: PROTHROMBIN TIME 10.5 SECONDS (9.0-12.0)
[2023-08-11 06:58] LABS: ALANINE AMINOTRANSFERASE 18 U/L (12-78); ALBUMIN 2.5 G/DL (3.4-5.0); ALBUMIN/GLOBULIN RATIO 0.8 (1.1-1.5); ALKALINE PHOSPHATASE 38 IU/L (46-116); AMYLASE 58 U/L (25-115); ANION GAP 10 (8-16); ASPARTATE AMINO TRANSFERASE 10 U/L (10-37); BILIRUBIN,TOTAL 0.2 MG/DL (0.1-1.0); BLOOD UREA NITROGEN 5 MG/DL (7-18); BUN/CREATININE RATIO 8.6 (10.0-20.0); CALCIUM 7.7 MG/DL (8.5-10.1); CHLORIDE 108 MMOL/L (99-107); CREATININE 0.58 MG/DL (0.40-0.90); GLUCOSE 108 MG/DL (70-104); LIPASE 117 U/L (16-77); MAGNESIUM 1.6 MG/DL (1.5-2.4); PHOSPHORUS 3.4 MG/DL (2.3-4.5); POTASSIUM 3.4 MMOL/L (3.5-5.1); SODIUM 141 MMOL/L (135-145); TOTAL CARBON DIOXIDE 23.5 MMOL/L (24-32); TOTAL PROTEIN 5.7 G/DL (6.4-8.2); eCRCL 109 ML/MIN; eGFR > 90 ML/MIN
[2023-08-11 08:00] VITALS: RESP 17; O2SAT 96
[2023-08-11] MEDS: potassium Cl 20 mEq SR tablet PO PRN (09:41)
[2023-08-11 10:00] VITALS: BP 132/90; PULSE 82; RESP 18; TEMP 98; O2SAT 97
[2023-08-11 11:57] LABS: ANISOCYTOSIS 2+; PLATELET ESTIMATE NORMAL; POLYCHROMASIA FEW; STOMATOCYTES FEW; TEAR DROP CELLS FEW
[2023-08-11 14:00] VITALS: BP 125/89; PULSE 78; RESP 17; TEMP 97.8; O2SAT 97
[2023-08-11] MEDS ORDERED: acetaminophen 325mg tablet PO PRN (15:50)
[2023-08-11 18:00] VITALS: BP 147/89; PULSE 96; RESP 16; TEMP 97.1; O2SAT 97
[2023-08-11 20:00] VITALS: RESP 18; O2SAT 95
[2023-08-11] MEDS: HYDROcodone/acetaminophen 5mg/325mg tablet PO PRN (20:03)
[2023-08-11] MEDS: diphenhydrAMINE 25mg capsule PO PRN (23:29)
[2023-08-12 05:00] VITALS: BP 134/83; PULSE 71; TEMP 96.9; O2SAT 18
[2023-08-12 06:19] LABS: BASOPHILS # (AUTO) 0.1 X10'3 (0-0.2); BASOPHILS % (AUTO) 0.8 % (0-1); EOSINOPHILS # (AUTO) 0.2 X10'3 (0-0.9); HEMATOCRIT 28.6 % (35.0-45.0); HEMOGLOBIN 9.2 g/dl (12.0-16.0); LYMPHOCYTES # (AUTO) 2.4 X10'3 (1.1-4.8); LYMPHOCYTES % (AUTO) 31.6 % (21-51); MEAN CORPUSCULAR HEMOGLOBIN 28.4 PG (27.0-31.0); MEAN CORPUSCULAR HGB CONC 32.2 g/dL (33.0-36.5); MEAN CORPUSCULAR VOLUME 88.3 FL (78-98); MEAN PLATELET VOLUME 7.7 FL (7.4-10.4); MONOCYTES # (AUTO) 0.4 X10'3 (0-0.9); MONOCYTES % (AUTO) 4.8 % (2-12); NEUTROPHILS # (AUTO) 4.4 X10'3 (1.8-7.7); NEUTROPHILS % (AUTO) 59.8 % (42-75); PLATELET COUNT 171 X10'3 (140-440); RED BLOOD COUNT 3.23 X10'6 (4.20-5.60); RED CELL DISTRIBUTION WIDTH 19.7 % (11.5-14.5); WHITE BLOOD COUNT 7.4 X10'3 (4.5-11.0)
[2023-08-12 06:27] LABS: PROTHROMBIN TIME 10.2 SECONDS (9.0-12.0)
[2023-08-12 06:46] LABS: ALANINE AMINOTRANSFERASE 18 U/L (12-78); ALBUMIN 2.6 G/DL (3.4-5.0); ALBUMIN/GLOBULIN RATIO 0.7 (1.1-1.5); ALKALINE PHOSPHATASE 48 IU/L (46-116); AMYLASE 48 U/L (25-115); ANION GAP 10 (8-16); ASPARTATE AMINO TRANSFERASE 10 U/L (10-37); BILIRUBIN,TOTAL 0.3 MG/DL (0.1-1.0); BLOOD UREA NITROGEN 14 MG/DL (7-18); BUN/CREATININE RATIO 20.9 (10.0-20.0); CALCIUM 8.8 MG/DL (8.5-10.1); CHLORIDE 105 MMOL/L (99-107); CREATININE 0.67 MG/DL (0.40-0.90); GLUCOSE 119 MG/DL (70-104); LIPASE 54 U/L (16-77); MAGNESIUM 1.8 MG/DL (1.5-2.4); PHOSPHORUS 4.7 MG/DL (2.3-4.5); POTASSIUM 4.1 MMOL/L (3.5-5.1); SODIUM 140 MMOL/L (135-145); TOTAL CARBON DIOXIDE 25.5 MMOL/L (24-32); TOTAL PROTEIN 6.4 G/DL (6.4-8.2); eCRCL 94 ML/MIN; eGFR > 90 ML/MIN
[2023-08-12] MEDS: thiamine 100mg tablet PO SCH (07:10)
[2023-08-12 10:00] VITALS: BP 130/81; PULSE 75; RESP 16; TEMP 97.5; O2SAT 96
[2023-08-12] MEDS: nicotine 21mg patch - 24 hr TD SCH (11:22)
[2023-08-12 18:00] VITALS: BP 160/85; PULSE 75; RESP 18; TEMP 96.9; O2SAT 96
[2023-08-12 20:00] VITALS: RESP 18; O2SAT 96
[2023-08-12 22:00] VITALS: BP 122/74; PULSE 83; RESP 17; TEMP 96.8; O2SAT 97
[2023-08-13 05:43] LABS: BASOPHILS % (AUTO) 0.6 % (0-1); EOSINOPHILS # (AUTO) 0.3 X10'3 (0-0.9); EOSINOPHILS % (AUTO) 3.8 % (0-6); HEMATOCRIT 29.3 % (35.0-45.0); HEMOGLOBIN 9.6 g/dl (12.0-16.0); LYMPHOCYTES # (AUTO) 1.9 X10'3 (1.1-4.8); MEAN CORPUSCULAR HEMOGLOBIN 28.7 PG (27.0-31.0); MEAN CORPUSCULAR HGB CONC 32.8 g/dL (33.0-36.5); MEAN CORPUSCULAR VOLUME 87.7 FL (78-98); MEAN PLATELET VOLUME 7.4 FL (7.4-10.4); MONOCYTES # (AUTO) 0.3 X10'3 (0-0.9); MONOCYTES % (AUTO) 4.3 % (2-12); NEUTROPHILS # (AUTO) 4.7 X10'3 (1.8-7.7); NEUTROPHILS % (AUTO) 65.3 % (42-75); PLATELET COUNT 184 X10'3 (140-440); RED BLOOD COUNT 3.34 X10'6 (4.20-5.60); RED CELL DISTRIBUTION WIDTH 20.3 % (11.5-14.5); WHITE BLOOD COUNT 7.2 X10'3 (4.5-11.0)
[2023-08-13 06:00] VITALS: BP_SYST 131; BP_SYST 170; BP_DIAS 72; BP_DIAS 85; PULSE 75; PULSE 79; RESP 17; RESP 18; TEMP 96.9; TEMP 97.5; O2SAT 96
[2023-08-13 06:12] LABS: ALANINE AMINOTRANSFERASE 19 U/L (12-78); ALBUMIN 2.6 G/DL (3.4-5.0); ALBUMIN/GLOBULIN RATIO 0.6 (1.1-1.5); ALKALINE PHOSPHATASE 49 IU/L (46-116); AMYLASE 56 U/L (25-115); ANION GAP 9 (8-16); ASPARTATE AMINO TRANSFERASE 6 U/L (10-37); BILIRUBIN,TOTAL 0.4 MG/DL (0.1-1.0); BLOOD UREA NITROGEN 14 MG/DL (7-18); CALCIUM 8.7 MG/DL (8.5-10.1); CHLORIDE 103 MMOL/L (99-107); GLUCOSE 160 MG/DL (70-104); LIPASE 71 U/L (16-77); POTASSIUM 3.6 MMOL/L (3.5-5.1); SODIUM 137 MMOL/L (135-145); TOTAL CARBON DIOXIDE 25.5 MMOL/L (24-32); TOTAL PROTEIN 6.7 G/DL (6.4-8.2); eCRCL 90 ML/MIN; eGFR > 90 ML/MIN
[2023-08-13] MEDS: folic acid 1mg tablet PO SCH (07:26)
[2023-08-13 08:00] VITALS: RESP 14; O2SAT 98
[2023-08-13 10:00] VITALS: BP 168/85; PULSE 75; RESP 18; TEMP 97.2; O2SAT 100
[2023-08-13] MEDS: HYDROmorphone inj. 0.5 MG/0.5 ML DISP.SYRIN IV PRN (17:21)
[2023-08-13 17:31] VITALS: BP 160/99
[2023-08-13 18:00] VITALS: BP 182/89; PULSE 86; RESP 20; TEMP 97.9; O2SAT 97
[2023-08-13 22:00] VITALS: BP 175/96; PULSE 72; RESP 15; TEMP 98.3; O2SAT 96
[2023-08-14 06:00] VITALS: BP 139/84; PULSE 75; RESP 16; TEMP 98.1; O2SAT 96
[2023-08-14 08:00] VITALS: RESP 14; O2SAT 98
[2023-08-14 10:00] VITALS: BP 131/80; PULSE 74; RESP 14; TEMP 97.8; O2SAT 98
[2023-08-14 18:00] VITALS: BP 171/98; PULSE 82; RESP 14; TEMP 98.3; O2SAT 97
[2023-08-14 22:00] VITALS: BP 165/96; PULSE 74; RESP 15; TEMP 100.1; O2SAT 97
[2023-08-15 06:00] VITALS: BP 146/84; PULSE 78; RESP 12; TEMP 97.5; O2SAT 97
[2023-08-15 10:00] VITALS: BP 162/89; PULSE 87; RESP 14; TEMP 98; O2SAT 96
[2023-08-15 18:00] VITALS: BP 149/85; PULSE 86; RESP 14; TEMP 97.9; O2SAT 98
[2023-08-15 22:00] VITALS: BP 135/78; PULSE 84; RESP 14; TEMP 97.9; O2SAT 96
[2023-08-16 06:00] VITALS: BP 171/105; PULSE 98; RESP 16; TEMP 97.1; O2SAT 98
[2023-08-16 10:00] VITALS: BP 146/90; PULSE 91; RESP 14; TEMP 97.9; O2SAT 99
[2023-08-16 18:00] VITALS: BP 151/52; PULSE 90; RESP 20; TEMP 97.6; O2SAT 97
[2023-08-16 22:00] VITALS: BP 153/90; PULSE 82; RESP 13; TEMP 97.7; O2SAT 98
[2023-08-17 06:00] VITALS: BP 132/79; PULSE 79; RESP 15; TEMP 97.9; O2SAT 96
[2023-08-17] MEDS: HYDROmorphone 1 mg/ml syringe IV PRN (07:57)
[2023-08-17 10:00] VITALS: BP 168/88; PULSE 76; RESP 18; TEMP 97.7; O2SAT 99
[2023-08-17 18:00] VITALS: BP 145/92; PULSE 87; RESP 14; TEMP 97.7; O2SAT 98
[2023-08-17 20:00] VITALS: RESP 14; O2SAT 98
[2023-08-17 22:00] VITALS: BP 149/86; PULSE 95; RESP 18; TEMP 97.5; O2SAT 96
[2023-08-18 05:55] LABS: ALANINE AMINOTRANSFERASE 31 U/L (12-78); ALBUMIN 3.6 G/DL (3.4-5.0); ALBUMIN/GLOBULIN RATIO 0.8 (1.1-1.5); ALKALINE PHOSPHATASE 71 IU/L (46-116); ANION GAP 11 (8-16); ASPARTATE AMINO TRANSFERASE 14 U/L (10-37); BILIRUBIN,TOTAL 0.4 MG/DL (0.1-1.0); BLOOD UREA NITROGEN 16 MG/DL (7-18); BUN/CREATININE RATIO 23.9 (10.0-20.0); CALCIUM 9.2 MG/DL (8.5-10.1); CHLORIDE 101 MMOL/L (99-107); CREATININE 0.67 MG/DL (0.40-0.90); GLUCOSE 156 MG/DL (70-104); POTASSIUM 3.9 MMOL/L (3.5-5.1); SODIUM 136 MMOL/L (135-145); TOTAL CARBON DIOXIDE 23.9 MMOL/L (24-32); TOTAL PROTEIN 8.2 G/DL (6.4-8.2); eCRCL 94 ML/MIN; eGFR > 90 ML/MIN
[2023-08-18 06:00] VITALS: BP 125/86; PULSE 75; RESP 16; TEMP 97.9; O2SAT 98
[2023-08-18 06:04] LABS: BASOPHILS # (AUTO) 0.1 X10'3 (0-0.2); BASOPHILS % (AUTO) 0.6 % (0-1); EOSINOPHILS # (AUTO) 0.2 X10'3 (0-0.9); EOSINOPHILS % (AUTO) 2.2 % (0-6); HEMATOCRIT 34.1 % (35.0-45.0); LYMPHOCYTES # (AUTO) 2.8 X10'3 (1.1-4.8); MEAN CORPUSCULAR HEMOGLOBIN 28.7 PG (27.0-31.0); MEAN CORPUSCULAR HGB CONC 32.4 g/dL (33.0-36.5); MEAN CORPUSCULAR VOLUME 88.7 FL (78-98); MEAN PLATELET VOLUME 7.2 FL (7.4-10.4); MONOCYTES # (AUTO) 0.9 X10'3 (0-0.9); NEUTROPHILS # (AUTO) 4.8 X10'3 (1.8-7.7); NEUTROPHILS % (AUTO) 55.2 % (42-75); PLATELET COUNT 336 X10'3 (140-440); RED BLOOD COUNT 3.84 X10'6 (4.20-5.60); RED CELL DISTRIBUTION WIDTH 20.8 % (11.5-14.5); WHITE BLOOD COUNT 8.7 X10'3 (4.5-11.0)
[2023-08-18 06:51] LABS: ANISOCYTOSIS 3+; PLATELET ESTIMATE NORMAL
[2023-08-18 06:52] LABS: ELLIPTOCYTES FEW; STOMATOCYTES FEW
[2023-08-18 08:00] VITALS: RESP 16; O2SAT 98
[2023-08-18] MEDS: lisinopril 20mg tablet PO SCH (08:54)
[2023-08-18 10:00] VITALS: BP 135/88; PULSE 81; RESP 16; TEMP 97.3; O2SAT 94
[2023-08-18 18:00] VITALS: BP 130/84; PULSE 94; RESP 16; TEMP 97.1; O2SAT 100
[2023-08-18 22:00] VITALS: BP 133/82; PULSE 80; RESP 18; TEMP 97.5; O2SAT 95
[2023-08-19 06:00] VITALS: BP 116/78; PULSE 76; RESP 20; TEMP 97.6; O2SAT 96
[2023-08-19 08:00] VITALS: RESP 20; O2SAT 96
[2023-08-19 10:00] VITALS: BP 148/83; PULSE 77; RESP 16; TEMP 98; O2SAT 97
[2023-08-19] MEDS ORDERED: BACL10TA2 PO (15:16)
[2023-08-19] MEDS ORDERED: BUSP10TA3 PO (15:16)
[2023-08-19 18:00] VITALS: BP 120/77; PULSE 78; RESP 16; TEMP 97.9; O2SAT 95
[2023-08-19 20:00] VITALS: RESP 16; O2SAT 98
[2023-08-19] MEDS: busPIRone 5mg tablet PO SCH (21:05)
[2023-08-19] MEDS: baclofen 10mg tablet PO SCH (21:06)
[2023-08-19 22:00] VITALS: BP 133/88; PULSE 87; RESP 14; TEMP 98; O2SAT 98
[2023-08-20 08:00] VITALS: RESP 16; O2SAT 16
[2023-08-20 12:32] VITALS: RESP 17
[2023-08-20 20:00] VITALS: RESP 18; O2SAT 98
[2023-08-21 06:00] VITALS: BP 113/79; PULSE 82; RESP 18; TEMP 96.7; O2SAT 98
[2023-08-21 08:00] VITALS: RESP 18; O2SAT 98
[2023-08-21 10:00] VITALS: BP 120/74; PULSE 84; RESP 16; TEMP 97.4; O2SAT 97
[2023-08-21] MEDS: ondansetron/PF 4mg/2ml inj IV PRN (14:18)
[2023-08-21 18:00] VITALS: BP 110/72; PULSE 77; RESP 14; TEMP 97.7; O2SAT 96
[2023-08-21 20:00] VITALS: RESP 18; O2SAT 98
[2023-08-21 22:00] VITALS: BP 123/92; PULSE 87; RESP 14; TEMP 97.3; O2SAT 99
[2023-08-22 06:00] VITALS: BP 118/81; PULSE 89; RESP 15; TEMP 96.8; O2SAT 99
[2023-08-22 08:00] VITALS: RESP 15; O2SAT 99
[2023-08-22 10:00] VITALS: BP 119/84; PULSE 91; RESP 16; TEMP 97.3; O2SAT 97
[2023-08-22] MEDS: LORazepam 1 MG tablet PO PRN (12:36)
[2023-08-22 18:00] VITALS: BP 107/53; PULSE 97; RESP 18; TEMP 98; O2SAT 95
[2023-08-22 20:40] VITALS: RESP 18; O2SAT 96
[2023-08-22 22:00] VITALS: BP 110/65; PULSE 86; RESP 13; TEMP 98.7; O2SAT 99
[2023-08-23 06:00] VITALS: BP 106/74; PULSE 72; RESP 16; TEMP 96.1; O2SAT 99
[2023-08-23 10:00] VITALS: BP 106/70; PULSE 83; RESP 16; TEMP 97.9; O2SAT 98
== END 2023-08-23 14:41 | disposition home or self-care (01) | DRG 313 ==
LOC: ER 14:57 → ED HOLD 16:12 → ORTHO 4S 21:00 → UNDODISIN 08-18 14:00
PROVIDERS: ADMIT Internal Medicine; ATTEND Internal Medicine
PROC: 0QSH06Z Reposition Left Tibia with Intramedullary Internal Fixation Device, Open Approach (ICD-10-PCS; 2023-08-09)
PROC: 3E0T3BZ Introduction of Anesthetic Agent into Peripheral Nerves and Plexi, Percutaneous Approach (ICD-10-PCS; principal; 2023-08-09 12:40)
DX: S82.252A Displaced comminuted fracture of shaft of left tibia, initial encounter for closed fracture (principal); D62 Acute posthemorrhagic anemia; S82.452A Displaced comminuted fracture of shaft of left fibula, initial encounter for closed fracture; E87.6 Hypokalemia; F10.229 Alcohol dependence with intoxication, unspecified; F10.239 Alcohol dependence with withdrawal, unspecified; I10 Essential (primary) hypertension; G89.29 Other chronic pain; W01.0XXA Fall on same level from slipping, tripping and stumbling without subsequent striking against object, initial encounter; Y90.9 Presence of alcohol in blood, level not specified; X50.1XXA Overexertion from prolonged static or awkward postures, initial encounter; Z59.00 Homelessness unspecified; Z82.49 Family history of ischemic heart disease and other diseases of the circulatory system; Z82.5 Family history of asthma and other chronic lower respiratory diseases; Z83.3 Family history of diabetes mellitus; Z88.8 Allergy status to other drugs, medicaments and biological substances; Z98.51 Tubal ligation status; Y93.89 Activity, other specified; Y92.89 Other specified places as the place of occurrence of the external cause; Y99.8 Other external cause status
CPT/HCPCS: 36415; 73590; 76000; 80053; 80320; 82150; 83690; 83735; 84100; 85008; 85025; 85610; 85730; 87081; 93005; 96374; 96375; 97110; 97116; 97161; 97530; 97535; 99285; A4215; A4618; A6258; A6446; A6449; A7000; C1713; G0378; J0690; J1100; J1170; J1650; J2060; J2175; J2250; J2270; J2405; J2704; J2795; J3010; J3370; J3480; J3490; J7120; L4360; Q0163

== ENCOUNTER 2024-09-16 21:21 | Emergency (ER) | payer MEDICAID ==
[~2024-09-16] VITALS: Ht 165.1 cm; Wt 78.0 kg
[~2024-09-16 21:21] MED LIST changes: +BACL10TA2 PO; +BUSP10TA3 PO; +CHOL500050 PO; -GABA300C PO; +LISI20TA28 PO; +MULT-1085 PO; +NAPR-1168 PO; -NAPR-996 PO; +POTA-188 PO; +PREG150C47 PO
[2024-09-16 21:37] VITALS: BP 134/84; PULSE 94; RESP 16; TEMP 97.6; O2SAT 96
== END 2024-09-16 23:02 | disposition left against medical advice (07) ==
LOC: ER 21:22
DX: R11.2 Nausea with vomiting, unspecified (principal); Z53.21 Procedure and treatment not carried out due to patient leaving prior to being seen by health care provider